=== PATIENT | male | born 1960 | race Caucasian/White ===

== ENCOUNTER 2016-07-31 19:22 | Emergency (ER) | payer OTHER ==
[~2016-07-31] VITALS: Ht 182.9 cm; Wt 91.0 kg
[~2016-07-31 19:22] MED LIST: DOXY100C PO
[2016-07-31 19:24] VITALS: BP 135/87; PULSE 102; RESP 16; TEMP 100.4; O2SAT 98
[2016-07-31] MEDS ORDERED: IBUPROFEN 800 MG TAB PO ONE (20:15)
[2016-07-31] MEDS ORDERED: CLINDAMYCIN INJ 900 MG in SODIUM CHLORIDE 0.9% INJ 100 ML IV ONE (20:15)
--- NOTE | 2016-07-31 20:28 | PD ---
HPI Chief Complaint: Lump, Cyst, Hernia Time Seen by Provider: 20:22 Travel History International Travel<30 days: No Contact w/Intl Traveler<30days: No Traveled to known affect area: No History of Present Illness HPI 55-year-old white male presents to emergency Department with complaints of a spider bite to his right forearm. He states that he felt that as if he had one on his dorsum of his arm a month ago and now he developed a second one on the volar forearm approximately 2 weeks ago. Patient admits to fever and chills. Increasing pain and swelling of the right forearm. He denies picking or squeezing the area. He denies any drug abuse or taking any medication. The patient states that he does not even like to take Tylenol. PFSH Past Medical History Medical History: Denies Significant Hx Diminished Hearing: No Tetanus Vaccination: Unknown Influenza Vaccination: No Past Surgical History Surgical History: No Previous Surgery Social History Alcohol Use: No Tobacco Use: No Substance Use: No Allergies-Medications (Allergen,Severity, Reaction): Coded Allergies: No Known Allergies (Unverified , 07/31/16) Reported Meds & Prescriptions Reported Meds & Active Scripts Active Cleocin (Clindamycin HCl) 150 Mg Cap 300 Mg PO Q6H Review of Systems Except as stated in HPI: all other systems reviewed are Neg General / Constitutional: Positive: Fever, Chills Eyes: No: Blurred Vision, Photophobia HENT: No: Headaches, Lightheadedness Cardiovascular: No: Chest Pain or Discomfort, Palpitations Respiratory: No: Cough, Shortness of Breath Gastrointestinal: No: Nausea, Vomiting Genitourinary: No: Dysuria, Hematuria Musculoskeletal: Positive: Myalgias, Edema, Pain Skin: Positive Rash, Positive Lumps Physical Exam Narrative GENERAL: This is a well-nourished, well-developed patient, in no apparent distress. SKIN: Examination the right forearm reveals a area of erythema, warmth and induration this measures approximately 8 x 8 cm. The forearm is edematous compared to the left. It is diffusely warm with mild tenderness. He has intact sensation distally. With good radial pulse. There is no involvement of the hand, elbow or upper arm. I feel no fluctuant abscess. HEAD: Atraumatic. Normocephalic. EYES: PERRL, EOMI, no discharge or injection. No scleral icterus. EARS: Clear NOSE: Nasal turbinates appear normal. THROAT: Mucosa pink and moist. Airway patent. NECK: Trachea midline. supple, moves head freely. LUNGS: Clear to auscultation. CV: Regular in rhythm. ABDOMEN: Soft nontender. EXT: No clubbing cyanosis or edema. Data Data Last Documented VS Vital Signs Date Time Temp Pulse Resp B/P Pulse Ox O2 Delivery O2 Flow Rate FiO2 07/31/16 19:49 16 07/31/16 19:24 100.4 102 135/87 98 Orders Complete Blood Count With Diff (07/31/16 20:02) Basic Metabolic Panel (Bmp) (07/31/16 20:02) Blood Culture (07/31/16 20:02) Iv Access Insert/Monitor (07/31/16 20:02) Clindamycin Inj (Cleocin Inj) (07/31/16 20:15) Ibuprofen (Motrin) (07/31/16 20:15) Drug Screen, Random Urine (07/31/16 20:28) Labs Laboratory Tests Test 07/31/16 20:20 White Blood Count 14.9 TH/MM3 Red Blood Count 4.51 MIL/MM3 Hemoglobin 12.3 GM/DL Hematocrit 37.8 % Mean Corpuscular Volume 83.8 FL Mean Corpuscular Hemoglobin 27.2 PG Mean Corpuscular Hemoglobin 32.5 % Concent Red Cell Distribution Width 14.9 % Platelet Count 300 TH/MM3 Mean Platelet Volume 8.6 FL Neutrophils (%) (Auto) 77.1 % Lymphocytes (%) (Auto) 11.0 % Monocytes (%) (Auto) 10.9 % Eosinophils (%) (Auto) 0.6 % Basophils (%) (Auto) 0.4 % Neutrophils # (Auto) 11.5 TH/MM3 Lymphocytes # (Auto) 1.6 TH/MM3 Monocytes # (Auto) 1.6 TH/MM3 Eosinophils # (Auto) 0.1 TH/MM3 Basophils # (Auto) 0.1 TH/MM3 CBC Comment DIFF FINAL Differential Comment Sodium Level 136 MEQ/L Potassium Level 4.3 MEQ/L Chloride Level 101 MEQ/L Carbon Dioxide Level 28.5 MEQ/L Anion Gap 7 MEQ/L Blood Urea Nitrogen 17 MG/DL Creatinine 1.68 MG/DL Estimat Glomerular Filtration 42 ML/MIN Rate Random Glucose 87 MG/DL Calcium Level 8.6 MG/DL [facility] Medical Decision Making Medical Screen Exam Complete: Yes Emergency Medical Condition: Yes Medical Record Reviewed: Yes Differential Diagnosis MDM: High Differential diagnoses: Abscess, folliculitis, cellulitis, lymphangitis, abrasion, contact dermatitis, IV drug abuse Narrative Course IV established. Blood culture sent. CBC, chemistry. Drug screen. Patient's given 900 mg of clindamycin IV. A drug screen was not collected due to patient's inability to urinate. He has an elevated white count and a elevated creatinine 1.6. The patient is advised to recheck in 48 hours with a primary care doctor or return to the ER if symptoms worsen. This is right arm cellulitis Diagnosis Primary Impression: Right arm cellulitis Patient Instructions: General Instructions Departure Forms: Tests/Procedures, Work Release Special Instructions: No work 2 days. Additional Instructions: Rest. Elevation. Warm compresses. Do not pick or squeeze. Clindamycin. 3 Advil every 6 hours. Recheck with a medical doctor in 48 hours or return to the ER if symptoms worsen. Med/Other Pt SpecificInfo: Prescription(s) given, Wound Care Scripts Clindamycin (Cleocin)150 Mg [id number] Mg PO Q6H #80 CAP Prov:Francisco Robb MD 07/31/16 Disposition: 01 DISCHARGE HOME Condition: Stable Garcia Rousseau Jul 31, 2016 20:27
[2016-07-31 20:52] LABS: AUTOMATED NEUTROPHIL # 11.5 TH/MM3 (1.8-7.7); BASOPHIL # 0.1 TH/MM3 (0-0.2); BASOPHIL % 0.4 % (0.0-2.0); EOSINOPHIL # 0.1 TH/MM3 (0-0.4); EOSINOPHIL % 0.6 % (0.0-4.0); HEMATOCRIT 37.8 % (39.0-51.0); HEMO FLAGS DIFF FINAL; LYMPHOCYTE # 1.6 TH/MM3 (1.0-4.8); MEAN CELL VOLUME 83.8 FL (80.0-100.0); MEAN CORPUSCULAR HEMOGLOBIN 27.2 PG (27.0-34.0); MEAN CORPUSCULAR HGB CONC 32.5 % (32.0-36.0); MONO % 10.9 % (0.0-8.0); NEUT % 77.1 % (16.0-70.0); PLATELET COUNT 300 TH/MM3 (150-450); RED BLOOD COUNT 4.51 MIL/MM3 (4.50-5.90); RED CELL DISTRIBUTION WIDTH 14.9 % (11.6-17.2); WHITE BLOOD COUNT 14.9 TH/MM3 (4.0-11.0)
[2016-07-31 21:16] LABS: BICARBONATE 28.5 MEQ/L (21.0-32.0); POTASSIUM 4.3 MEQ/L (3.5-5.1)
[2016-07-31] MEDS ORDERED: CLIN150 PO (21:23)
[2016-07-31 21:25] VITALS: RESP 14
[2016-07-31 21:36] VITALS: BP 156/62; TEMP 98.3
== END 2016-07-31 21:36 | disposition home or self-care (01) ==
LOC: NEPB 19:22
DX: L03.113 Cellulitis of right upper limb (principal); M79.89 Other specified soft tissue disorders; R50.9 Fever, unspecified
CPT/HCPCS: 80048; 85025; 87040; 96365

== ENCOUNTER 2016-08-02 00:46 | Emergency (ER) | payer OTHER ==
[~2016-08-02] VITALS: Ht 180.3 cm; Wt 96.0 kg
[~2016-08-02 00:46] MED LIST changes: +CLIN150 PO
[2016-08-02 00:52] VITALS: BP 115/69; PULSE 100; RESP 18; TEMP 97.9; O2SAT 97
[2016-08-02] MEDS ORDERED: LIDOCAINE 1%/EPINEPHrine 1:100,000 SOLN 20 ML VIAL INFIL ONE (02:00)
--- NOTE | 2016-08-02 02:24 | PD ---
HPI Chief Complaint: Bite or Sting Time Seen by Provider: 01:45 Travel History International Travel<30 days: No Contact w/Intl Traveler<30days: No Traveled to known affect area: No History of Present Illness HPI The patient is a 55-year-old right-hand dominant male that states he had a bite on his volar right forearm 2 weeks ago. This bite appeared to resolve but he developed an abscess on the dorsal aspect of the right forearm approximately one week ago. The patient went to the [facility] emergency department on 31 July and his lesion was not drained but they gave him a prescription for clindamycin. He comes in today knowing that it needs drainage. He denies any drug abuse. He states he is somewhat angry that he has happened several times where they gave him an antibiotic and did not drain his abscess and he has to come here to [place] to get it drained. His last tetanus shot was 2 years ago. PFSH Past Medical History Diminished Hearing: No Herniated Disk: Yes (LOWER BACK) Tetanus Vaccination: < 5 Years Social History Alcohol Use: Yes Tobacco Use: No (QUIT SMOKE 1996) Substance Use: No Allergies-Medications (Allergen,Severity, Reaction): Coded Allergies: No Known Allergies (Unverified , 08/02/16) Reported Meds & Prescriptions Reported Meds & Active Scripts Active Cleocin (Clindamycin HCl) 150 Mg Cap 300 Mg PO Q6H Review of Systems Except as stated in HPI: all other systems reviewed are Neg Physical Exam Narrative GENERAL: Well-nourished, well-developed patient in slight apparent distress with his right forearm. His vital signs show heart rate of 100 but otherwise normal. SKIN: Warm and dry. There is a 3 cm diameter abscess on the dorsal forearm surrounded by cellulitis and swelling. This obviously needs drainage. HEAD: Normocephalic. EYES: No scleral icterus. No injection or drainage. NECK: Supple, trachea midline. No JVD or lymphadenopathy. CARDIOVASCULAR: Regular rate and rhythm without murmurs, gallops, or rubs. RESPIRATORY: Breath sounds equal bilaterally. No accessory muscle use. The patient has excellent hand hunting and fishing guide strength and normal pinprick sensation of all his fingers and thumb on the right hand. Good capillary refill is present as well. GASTROINTESTINAL: Abdomen soft, non-tender, nondistended. MUSCULOSKELETAL: No cyanosis, or edema. BACK: Nontender without obvious deformity. No CVA tenderness. Data Data Last Documented VS Vital Signs Date Time Temp Pulse Resp B/P Pulse Ox O2 Delivery O2 Flow Rate FiO2 08/02/16 00:52 97.9 100 18 115/69 97 Orders Wound Culture And Gram Stain (08/02/16 01:51) Lidocai-Epi 1%-1:100,000 Inj (Xylocaine- (08/02/16 02:00) MDM Medical Decision Making Medical Screen Exam Complete: Yes Emergency Medical Condition: Yes Medical Record Reviewed: Yes Differential Diagnosis Abscess right forearm, cellulitis right forearm, needle track abscesshighly unlikely Narrative Course The patient has an abscess of his right forearm. Surrounding this abscess and cellulitis. A considerable amount of pus was recovered from the abscess but it still needs to drain from the surrounding tissues. The patient should soak the forearm and warm water twice daily for about 30 minutes. He should use elevation and a heating pad. Procedures Procedure Narrative The area was prepped with Betadine. A field block was done with lidocaine with epinephrine around the abscess. Under sterile technique, a #11 blade was used to incise into the abscess. Considerable pus was recovered. A culture was taken. Loculations were broken up with a Q-tips moistened with peroxide. The patient tolerated the procedure well. Diagnosis Primary Impression: Encounter for drainage of abscess Additional Impression: Right forearm cellulitis Additional Instructions: As we discussed, use a heating pad turned on its lowest setting an interposed a towel between your skin and the pad to avoid lynch. Elevate your forearm above your heart as much as possible. Once daily for 30 minutes soak the wound in warm water. You can do this in the shower and trained the shower on the forearm. Med/Other Pt SpecificInfo: Prescription(s) given Scripts Sulfamethoxazole-Trimethoprim (Bactrim DS)800-160 Mg Tab1 Tab PO BID #20 TAB Ref 0 Prov:Joseph Bess MD 08/02/16 Disposition: 01 DISCHARGE HOME Condition: Stable Joseph Bess MD Aug 02, 2016 02:24
[2016-08-02] MEDS ORDERED: BACT800T5 PO (02:31)
[2016-08-02] MEDS ORDERED: SULFAMETHOXAZOLE-TRIMETHOPRIM DS 800-160 MG TAB PO ONE (02:45)
== END 2016-08-02 02:45 | disposition home or self-care (01) ==
LOC: PHED 00:46
DX: L02.413 Cutaneous abscess of right upper limb (principal)
CPT/HCPCS: 10060; 86403; 87070; 87186

== ENCOUNTER 2016-08-06 18:01 | Emergency (ER) | payer OTHER ==
[~2016-08-06] VITALS: Ht 167.6 cm; Wt 94.0 kg
[~2016-08-06 18:01] MED LIST changes: +BACT800T5 PO; -DOXY100C PO
[2016-08-06 18:06] VITALS: BP 105/76; PULSE 76; RESP 20; TEMP 99.9; O2SAT 98
[2016-08-06] MEDS ORDERED: VENTAER INH (18:49)
--- NOTE | 2016-08-06 18:52 | PD ---
HPI Chief Complaint: Skin Problem Time Seen by Provider: 18:21 Travel History International Travel<30 days: No Contact w/Intl Traveler<30days: No Traveled to known affect area: No History of Present Illness HPI This patient complains of some body aches and runny nose and congestion and cough. He was here 4 days ago for I&D of an arm abscess which is improving. Severity symptoms is moderate. PFSH Past Medical History Diminished Hearing: No Herniated Disk: Yes (LOWER BACK) Tetanus Vaccination: < 5 Years Influenza Vaccination: No Past Surgical History Other Surgery: Yes (I and D right elbow) Social History Alcohol Use: No Tobacco Use: No (QUIT SMOKE 1996) Substance Use: No Allergies-Medications (Allergen,Severity, Reaction): Coded Allergies: *MDRO Multi-Drug Resistant Organism (Verified Adverse Reaction, Unknown, ) MRSA (elbow)-08/01/16 Reported Meds & Prescriptions Reported Meds & Active Scripts Active Ventolin Hfa 18 GM Inh (Albuterol Sulfate) 90 Mcg/Act Aer 1 Puff INH Q4H PRN Bactrim DS (Sulfamethoxazole-Trimethoprim) 800-160 Mg Tab 1 Tab PO BID Cleocin (Clindamycin HCl) 150 Mg Cap 300 Mg PO Q6H Review of Systems HENT: No: Headaches Cardiovascular: No: Chest Pain or Discomfort Respiratory: Positive: Cough Physical Exam Narrative RESPIRATORY: Respiratory effort unlabored, no retractions or use of accessory muscles. Breath sounds reveal some rhonchi and are symmetric GASTROINTESTINAL: Abdomen soft, non-tender, nondistended. Positive bowel sounds. No hepato-splenomegaly, or palpable masses. No guarding. Right arm: Incision and drainage site is healing, no fluctuance or drainage Data Data Last Documented VS Vital Signs Date Time Temp Pulse Resp B/P Pulse Ox O2 Delivery O2 Flow Rate FiO2 08/06/16 18:06 99.9 76 20 105/76 98 MDM Medical Decision Making Medical Screen Exam Complete: Yes Emergency Medical Condition: Yes Medical Record Reviewed: Yes Differential Diagnosis Flu syndrome, bronchitis, URI Narrative Course I have reviewed the patient's electronic medical record. Reviewed prior visit from 4 days ago as well as I and the culture results that show MRSA sensitive to both of his antibiotics Patient has a flu syndrome I think unrelated to his arm infection which is healing Continue antibiotics Supportive care discussed and an inhaler prescribed Diagnosis Primary Impression: Acute viral syndrome Additional Instructions: The patient was advised to follow up with their physician and return if they worsen. Med/Other Pt SpecificInfo: Prescription(s) given Scripts Albuterol 18 GM Inh (Ventolin Hfa 18 GM Inh)90 Mcg/Act Aer1 Puff INH Q4H PRN ( SHORTNESS OF BREATH) #1 INHALER Ref 0 Prov:Anselmo Barr MD 08/06/16 Disposition: 01 DISCHARGE HOME Condition: Stable Anselmo Barr MD Aug 06, 2016 18:51
== END 2016-08-06 19:11 | disposition home or self-care (01) ==
LOC: PHED 18:01
DX: B34.9 Viral infection, unspecified (principal)
CPT/HCPCS: 99283

== ENCOUNTER 2016-10-16 07:58 | Observation (INO) | payer OTHER ==
[~2016-10-16] VITALS: Ht 180.3 cm; Wt 86.4 kg
[2016-10-16] VITALS (18 sets, daily range): BP systolic 119–148; BP diastolic 84–104; PULSE 88–101; RESP 12–41; TEMP 97.9–98.6; O2SAT 82–100
[~2016-10-16 07:58] MED LIST changes: +VENTAER INH
--- NOTE | 2016-10-16 08:36 | PD ---
HPI Chief Complaint: Respiratory Symptoms Time Seen by Provider: 08:09 Travel History International Travel<30 days: No Contact w/Intl Traveler<30days: No Traveled to known affect area: No History of Present Illness HPI This is a 56 year old male who has no significant past medical history who presents with one month of shortness of breath. Pt. reports that one month ago he had the flu and he recovered, but over the past 2 weeks his shortness of breath has persisted, constant, worsening, with difficulty sleeping and difficulty lying flat. He feels somewhat lightheaded, but denies any fevers, chills, chest pain or cough. 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 PFSH Past Medical History Diminished Hearing: No Herniated Disk: Yes (LOWER BACK) Tetanus Vaccination: > 5 Years Influenza Vaccination: No Past Surgical History Other Surgery: Yes (I and D right elbow) Social History Alcohol Use: No Tobacco Use: No (QUIT SMOKE 1996) Substance Use: No Allergies-Medications (Allergen,Severity, Reaction): Coded Allergies: *MDRO Multi-Drug Resistant Organism (Verified Adverse Reaction, Unknown, ) MRSA (elbow)-08/01/16 Reported Meds & Prescriptions Reported Meds & Active Scripts Active No Active Prescriptions or Reported Medications Review of Systems Except as stated in HPI: all other systems reviewed are Neg Physical Exam Narrative GENERAL:Well appearing, no acute distress SKIN: Focused skin assessment warm and dry. HEAD: Atraumatic. Normocephalic. EYES: Pupils equal and round. No injection or drainage. ENT: Moist mucous membranes NECK: Trachea midline. CARDIOVASCULAR: Regular rate and rhythm. No murmur appreciated. RESPIRATORY: Clear to auscultation. Breath sounds equal bilaterally. GASTROINTESTINAL: Abdomen soft, non-tender, nondistended. MUSCULOSKELETAL: No obvious deformities. NEUROLOGICAL: Awake and alert. No obvious cranial nerve deficits. Moving all extremities. PSYCHIATRIC: Appropriate mood and affect; insight and judgment normal. Data Data Last Documented VS Vital Signs Date Time Temp Pulse Resp B/P Pulse Ox O2 Delivery O2 Flow Rate FiO2 10/16/16 10:23 98.6 94 26 125/87 97 Room Air Orders Complete Blood Count With Diff (10/16/16 08:43) Comprehensive Metabolic Panel (10/16/16 08:43) B-Type Natriuretic Peptide (10/16/16 08:43) Troponin I (10/16/16 08:43) Iv Access Insert/Monitor (10/16/16 08:43) Ecg Monitoring (10/16/16 08:43) Oximetry (10/16/16 08:43) Oxygen Administration (10/16/16 08:43) Chest, Pa & Lat (10/16/16 08:43) Sodium Chloride 0.9% Flush (Ns Flush) (10/16/16 08:45) Aspirin Chew (Aspirin Chew) (10/16/16 09:45) D-Dimer (10/16/16 09:44) Prothrombin Time / Inr (Pt) (10/16/16 09:44) Act Partial Throm Time (Ptt) (10/16/16 09:44) Furosemide Inj (Lasix Inj) (10/16/16 10:15) Admit Order (Ed Use Only) (10/16/16 10:23) Labs Laboratory Tests Test 10/16/16 08:50 White Blood Count 10.0 TH/MM3 Red Blood Count 4.60 MIL/MM3 Hemoglobin 12.5 GM/DL Hematocrit 38.7 % Mean Corpuscular Volume 84.1 FL Mean Corpuscular Hemoglobin 27.2 PG Mean Corpuscular Hemoglobin 32.4 % Concent Red Cell Distribution Width 15.9 % Platelet Count 293 TH/MM3 Mean Platelet Volume 8.4 FL Neutrophils (%) (Auto) 72.2 % Lymphocytes (%) (Auto) 17.2 % Monocytes (%) (Auto) 7.8 % Eosinophils (%) (Auto) 1.1 % Basophils (%) (Auto) 1.7 % Neutrophils # (Auto) 7.2 TH/MM3 Lymphocytes # (Auto) 1.7 TH/MM3 Monocytes # (Auto) 0.8 TH/MM3 Eosinophils # (Auto) 0.1 TH/MM3 Basophils # (Auto) 0.2 TH/MM3 CBC Comment DIFF FINAL Differential Comment Prothrombin Time 10.7 SEC Prothromb Time International 1.0 RATIO Ratio Activated Partial 24.6 SEC Thromboplast Time D-Dimer Quantitative (PE/DVT) 0.73 MG/L FEU Sodium Level 141 MEQ/L Potassium Level 4.1 MEQ/L Chloride Level 109 MEQ/L Carbon Dioxide Level 22.9 MEQ/L Anion Gap 9 MEQ/L Blood Urea Nitrogen 27 MG/DL Creatinine 1.80 MG/DL Estimat Glomerular Filtration 39 ML/MIN Rate Random Glucose 104 MG/DL Calcium Level 7.8 MG/DL Total Bilirubin 0.4 MG/DL Aspartate Amino Transf 95 U/L (AST/SGOT) Alanine Aminotransferase 120 U/L (ALT/SGPT) Alkaline Phosphatase 89 U/L Troponin I 0.17 NG/ML B-Type Natriuretic Peptide 2277 PG/ML Total Protein 6.7 GM/DL Albumin 3.1 GM/DL MDM Medical Decision Making Medical Screen Exam Complete: Yes Emergency Medical Condition: Yes Interpretation(s) EKG: Afebrile, tachycardic, tachypneic, normotensive No leukocytosis Renal insufficiency Troponin 0.17 BNP is 2277 D-dimer is 0.73 Chest x-ray: Cardiomegaly with interstitial prominence VQ scan: Low probability of PE Differential Diagnosis COPD exacerbation, congestive heart failure, myocardial infarction, pulmonary embolism, pneumonia Narrative Course This is a 56-year-old male who has a history of methamphetamine abuse who presents to the emergency department with increasing shortness of breath it's been progressive for 4 weeks ever since he had an upper respiratory infection. He was placed on a monitor and an IV was established. He was not hypoxic but was found to be somewhat tachypneic. Labs are obtained which demonstrate a BNP of 2200. Chest x-ray demonstrates some pulmonary congestion on my read. He was given 40 mg of IV Lasix. I suspect he may have a dilated cardiomyopathy in the setting of drug use, although ischemic cardiomyopathy cannot be excluded. D -dimer was slightly elevated. VQ scan will be ordered. After inflating the bathroom patient became a little more dyspneic and slightly hypoxic. He'll be admitted to the stepdown unit at [facility]. Diagnosis Primary Impression: Congestive heart failure Qualified Code: I50.9 - Acute congestive heart failure, unspecified congestive heart failure type Admitting Information Admitting Physician Requests: Admit Scripts No Active Prescriptions or Reported Meds Britney Ojeda MD October 16, 2016 08:36
[2016-10-16 08:58] LABS: AUTOMATED NEUTROPHIL # 7.2 TH/MM3 (1.8-7.7); BASOPHIL # 0.2 TH/MM3 (0-0.2); BASOPHIL % 1.7 % (0.0-2.0); EOSINOPHIL # 0.1 TH/MM3 (0-0.4); EOSINOPHIL % 1.1 % (0.0-4.0); HEMATOCRIT 38.7 % (39.0-51.0); LYMPH % 17.2 % (9.0-44.0); LYMPHOCYTE # 1.7 TH/MM3 (1.0-4.8); MEAN CELL VOLUME 84.1 FL (80.0-100.0); MEAN CORPUSCULAR HEMOGLOBIN 27.2 PG (27.0-34.0); MEAN CORPUSCULAR HGB CONC 32.4 % (32.0-36.0); MONO % 7.8 % (0.0-8.0); NEUT % 72.2 % (16.0-70.0); PLATELET COUNT 293 TH/MM3 (150-450); RED CELL DISTRIBUTION WIDTH 15.9 % (11.6-17.2)
[2016-10-16 09:03] LABS: HEMO FLAGS DIFF FINAL
[2016-10-16 09:07] LABS: CHLORIDE 109 MEQ/L (98-107); POTASSIUM 4.1 MEQ/L (3.5-5.1); SODIUM (NA) 141 MEQ/L (136-145)
[2016-10-16 09:12] LABS: ANION GAP 9 MEQ/L (5-15); BICARBONATE 22.9 MEQ/L (21.0-32.0); BLOOD UREA NITROGEN 27 MG/DL (7-18)
[2016-10-16 09:15] LABS: ALT (GPT) 120 U/L (12-78); AST (GOT) 95 U/L (15-37)
[2016-10-16 09:16] LABS: GLOMERULAR FILTRATION RATE 39 ML/MIN (>89)
[2016-10-16 09:17] LABS: TOTAL BILIRUBIN ADULT 0.4 MG/DL (0.2-1.0)
[2016-10-16 09:18] LABS: ALKALINE PHOSPHATASE 89 U/L (45-117)
[2016-10-16] MEDS ORDERED: ASPIRIN 81 MG CHEW TAB CHEW ONE (09:45)
--- NOTE | 2016-10-16 10:08 | RADHPO ---
EXAM DATE/TIME: 10/16/2016 09:15 [facility] COMPARISON: No previous studies available for comparison. INDICATIONS : Short of breath, chest tightness. MEDICAL HISTORY : None. SURGICAL HISTORY : None. ENCOUNTER: Initial ACUITY: 2 weeks PAIN SCORE: 1/10 LOCATION: Bilateral chest FINDINGS: PA and lateral views of the chest demonstrate diminished lung minus. Heart mildly enlarged. Tiny righ t pleural effusion. There is some pulmonary vascular congestion and interstitial prominence. Osseous structures are intact. CONCLUSION: 1. Cardiomegaly with slight interstitial prominence likely CHF. 2. Tiny right pleural effusion. Angel Villalobos MD on October 16, 2016 at 10:05 Board Certified Radiologist. This report was verified electronically.
[2016-10-16] MEDS ORDERED: FUROSEMIDE 40 MG/4 ML VIAL IV PUSH ONE (10:15)
[2016-10-16] MEDS: SODIUM CHLORIDE 0.9% FLUSH 10 ML FLUSH IVF PRN (10:20)
[2016-10-16 10:23] LABS: APTT (PATIENT) 24.6 SEC (24.3-30.1); PROTHROMBIN TIME - PATIENT 10.7 SEC (9.8-11.6)
[2016-10-16] MEDS ORDERED: PILL SPLITTER OTHER PRN (12:00)
[2016-10-16] MEDS: HEPARIN SODIUM - SQ 10,000 UNITS/ML VIAL SQ SCH ×2 (12:00→20:08)
--- NOTE | 2016-10-16 15:04 | HHI.HP ---
[facility] No Primary Care Physician Admission Diagnosis acute congestive heart failure Diagnoses: Chief Complaint: Shortness of breath Travel History International Travel<30 Days: No Contact w/Intl Traveler <30 Da: No Traveled to Known Affected Are: No History of Present Illness 56 years old male withpast medical history presented to the ED complaining of subjective feeling of constant short of breath, his saturation wasn't dropping in ED however his BMP was 2200. 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 He stated he quit smoking 1996 and he drinks alcohol once a month. 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 Family History Father had multiple heart attack Social History Quit smoking 1996, drink alcohol occasionally, positive marijuana and meth Physical Exam Vital Signs Vital Signs Date Time Temp Pulse Resp B/P Pulse Ox O2 Delivery O2 Flow Rate FiO2 10/16/16 12:02 96 41 129/102 94 10/16/16 11:48 92 40 125/95 96 10/16/16 11:41 90 37 148/104 93 10/16/16 10:47 98 26 123/99 100 Nasal Cannula 2 10/16/16 10:23 98.6 94 26 125/87 97 Room Air 10/16/16 09:41 96 24 125/87 100 Room Air 10/16/16 08:53 100 Room Air 10/16/16 08:52 100 Room Air 10/16/16 08:14 10/16/16 08:13 100 Room Air 10/16/16 08:05 98.6 101 17 130/97 100 Physical Exam GENERAL: This is a well-nourished, well-developed patient, in no apparent distress. SKIN: No rashes, warm and dry HEAD: Atraumatic. Normocephalic. EYES: Pupils equal round and reactive. Extraocular motions intact. No scleral icterus. ENT: Nose without bleeding, or drainage, Airway patent. NECK: Trachea midline. Supple CARDIOVASCULAR: Regular with ectopy rate and rhythm without murmurs, gallops, or rubs. RESPIRATORY: Fair air entry bilaterally. No wheezes, rales, or rhonchi. GASTROINTESTINAL: Abdomen soft, non-tender, nondistended. Positive bowel sounds MUSCULOSKELETAL: Extremities without clubbing, cyanosis, or edema. Pedal pulses appreciated NEUROLOGICAL: Awake and alert. Moves all extremity. Normal speech.no focal neurological deficit Laboratory Laboratory Tests Test 10/16/16 08:50 White Blood Count 10.0 Red Blood Count 4.60 Hemoglobin 12.5 Hematocrit 38.7 Mean Corpuscular Volume 84.1 Mean Corpuscular Hemoglobin 27.2 Mean Corpuscular Hemoglobin 32.4 Concent Red Cell Distribution Width 15.9 Platelet Count 293 Mean Platelet Volume 8.4 Neutrophils (%) (Auto) 72.2 Lymphocytes (%) (Auto) 17.2 Monocytes (%) (Auto) 7.8 Eosinophils (%) (Auto) 1.1 Basophils (%) (Auto) 1.7 Neutrophils # (Auto) 7.2 Lymphocytes # (Auto) 1.7 Monocytes # (Auto) 0.8 Eosinophils # (Auto) 0.1 Basophils # (Auto) 0.2 CBC Comment DIFF FINAL Differential Comment Prothrombin Time 10.7 Prothromb Time International 1.0 Ratio Activated Partial 24.6 Thromboplast Time D-Dimer Quantitative (PE/DVT) 0.73 Sodium Level 141 Potassium Level 4.1 Chloride Level 109 Carbon Dioxide Level 22.9 Anion Gap 9 Blood Urea Nitrogen 27 Creatinine 1.80 Estimat Glomerular Filtration 39 Rate Random Glucose 104 Calcium Level 7.8 Total Bilirubin 0.4 Aspartate Amino Transf 95 (AST/SGOT) Alanine Aminotransferase 120 (ALT/SGPT) Alkaline Phosphatase 89 Troponin I 0.17 B-Type Natriuretic Peptide 2277 Total Protein 6.7 Albumin 3.1 Result Diagram: 10/16/16 0850 10/16/16 0850 Imaging Last Impressions Chest X-Ray 10/16/16 0843 Signed Impressions: Service Date/Time: Sunday, October 16, 2016 09:15 - CONCLUSION: 1. Cardiomegaly with slight interstitial prominence likely CHF. 2. Tiny right pleural effusion. Angel Villalobos MD Assessment and Plan Assessment and Plan 56 years old male presented with Short of breath with BMP 2277, chest x-ray showing enlarged heart with a moderate congestion and pleural effusion Rule out new cardiomyopathy, viral versus illicit drug-induced Patient was given a dose of Lasix iv, will continue Monitor BMP, BNP, negative for loss, I&O's Continue cycling cardiac enzyme first set increase troponin 0.17 2-D echo ordered Dimer elevated, ordered VQ scan pending Check A1c and lipid profile rule out underlying ischemic process If cardiomyopathy confirmed, will consult cardiology for possible heart catheter EBONI versus CKD we don't have baseline creatinine level Recent creatinine in July 2016 was 1.68, today is 1.8 Avoid nephrotoxin, monitor BMP, continue diuresing Monitor I's and O's Multiple ectopy on heart auscultation with bigeminy and trigeminy on telemetry Consistent with possible cardiomyopathy we'll wait for 2-D echo, monitor electrolyte and replace as needed Meth abuse own patient counseled Elevated transaminase Possible liver congestion, repeat level in a.m., if continued to be increase consider liver ultrasound and hepatitis panel Symptomatic bacteriuria: UA showing small leukocyte esterase with 12 WBC, no dysuria, antibiotic not indicated DVT prophylaxis with heparin and SCD Discussed Condition With Patient in ED physician Natalie Avila MD October 16, 2016 15:04
[2016-10-16 15:09] LABS: HDL CHOLESTEROL 43.6 MG/DL (40.0-60.0); LDL CHOLESTEROL 101 MG/DL (0-99)
--- NOTE | 2016-10-16 15:21 | RADHPO ---
EXAM DATE/TIME: 10/16/2016 14:20 [facility] COMPARISON: No previous studies available for comparison. INDICATIONS : Dyspnea with elevated d-dimer. DOSE: 8.5 mCi Tc99m MAA IV 0.54 mCi Tc99m DTPA aerosol MEDICAL HISTORY : Polysubstance abuse. SURGICAL HISTORY : Right elbow. ENCOUNTER: Subsequent ACUITY: 2 weeks PAIN SCALE: 4/10 LOCATION: Bilateral chest TECHNIQUE: Following five minutes of tidal breathing of DTPA aerosol, planar images of the lungs were performed in eight projections. The patient was then injected with MAA, and eight-view perfusion scan was perf ormed. FINDINGS: There is a homogeneous pattern of aerosol delivery to the periphery of both lungs. No focal ventilat ory defects are seen. The perfusion lung scan demonstrates a homogenous pattern of uptake in both lungs. No segmental or s ubsegmental defects are seen. CONCLUSION: 1. Low probability of pulmonary embolism Adilson Romano MD on October 16, 2016 at 15:18 Board Certified Radiologist. This report was verified electronically.
[2016-10-16 17:22] LABS: CREATINE KINASE 132 U/L (39-308)
[2016-10-16 17:27] LABS: HEMOGLOBIN A1b 1.5 %; HEMOGLOBIN Ao 85.7 %; HEMOGLOBIN P3 5.2 %
[2016-10-16 17:34] LABS: CKMB 4.5 NG/ML (0.5-3.6)
[2016-10-16] MEDS ORDERED: FUROSEMIDE 40 MG/4 ML VIAL IVP SCH (18:00)
--- NOTE | 2016-10-16 20:02 | EC ---
Study Study Date:10/16/2016 STUDY CONCLUSIONS SUMMARY - Left ventricle: The cavity size was severely dilated. Wall thickness was normal. Systolic function was severely reduced. The estimated ejection fraction was in the range of 10% to 15%. Diffuse hypokinesis. - Mitral valve: Moderate to severe regurgitation. - Tricuspid valve: Moderate-severe regurgitation. - Pulmonary arteries: Systolic pressure was moderately increased. PA peak pressure: 50mm Hg (S). If LV function is below 40, please consider prescribing an ACEI or ARB or document rationale for non-use. PROCEDURE DATA STUDY STATUS: Elective. Procedure: Transthoracic echocardiography. Image quality was good. Scanning was performed from the parasternal, apical, and subcostal acoustic windows. Study completion: The patient tolerated the procedure well. Transthoracic echocardiography. M-mode, complete 2D, complete spectral Doppler, and color Doppler. Height: Height: 71in. Weight: Weight: 204.6lb. Body mass index: BMI: 28.6kg/m^2. Body surface area: BSA: 2.13m^2. Patient status: Inpatient. CARDIAC ANATOMY LEFT VENTRICLE: The cavity size was severely dilated. Wall thickness was normal. Systolic function was severely reduced. The estimated ejection fraction was in the range of 10% to 15%. Diffuse hypokinesis. AORTIC VALVE: Trileaflet; normal thickness leaflets. Doppler: Transvalvular velocity was within the normal range. There was no stenosis. No regurgitation. Mean gradient: 4mm Hg (S). AORTA: Aortic root: The aortic root was normal in size. MITRAL VALVE: Structurally normal valve. Doppler: Transvalvular velocity was within the normal range. There was no evidence for stenosis. Moderate to severe regurgitation. Peak gradient: 6mm Hg (D). LEFT ATRIUM: The atrium was normal in size. RIGHT VENTRICLE: The cavity size was normal. Wall thickness was normal. PULMONIC VALVE: Doppler: Transvalvular velocity was within the normal range. There was no evidence for stenosis. No regurgitation. TRICUSPID VALVE: Structurally normal valve. Doppler: Transvalvular velocity was within the normal range. Moderate-severe regurgitation. PULMONARY ARTERY: The main pulmonary artery was normal-sized. Systolic pressure was moderately increased. RIGHT ATRIUM: The atrium was normal in size. PERICARDIUM: There was no pericardial effusion. SYSTEMIC VEINS: Inferior vena cava: The vessel was normal in size. Patient weight: 204.6lb _Ejection fraction:_ 65-75% _Fractional shortening:_ 32% up to 5Kg 5-11.5Kg 11.6-22.9Kg 23-45Kg 45-57Kg Aortic Root 7-13 <17 13-22 17-27 17-27 LA diam 6-13 <23 24-38 33-47 37-40 RVID 10-17 7-15 7-15 7-18 8-17 LVIDd 12-22 <32 24-38 33-47 37-40 LVPW 2-4 3-6 5-7 6-8 7-8 IVS 2-4 3-6 5-7 6-8 7-8 BASIC MEASUREMENTS ADULT Normal Left ventricle LV internal dimension, ED, chordal level, *71.4 mm 43-52 PLAX LV internal dimension, ES, chordal level, *67.6 mm 23-38 PLAX Fractional shortening, chordal level, PLAX *5 % >29 LV posterior wall thickness, ED 9.8 mm IVS/LVPW ratio, ED 1 <1.3 Ventricular septum Septal thickness, ED 9.8 mm Aortic valve Leaflet separation 20 mm 15-26 Aorta Root diameter, ED 31 mm Left atrium Anterior-posterior dimension 43 mm Anterior-posterior dimension index 2.02 cm/m^2 <2.2 BASIC MEASUREMENTS ADULT Normal Aortic valve Leaflet separation 20 mm 15-26 DOPPLER MEASUREMENTS ADULT Normal Main pulmonary artery Pressure, S *50 mm Hg =30 Aortic valve Peak velocity, S 128 cm/s Mean velocity, S 89.6 cm/s VTI, S 20.4 cm Mean gradient, S 4 mm Hg Mitral valve Peak E-wave velocity 126 cm/s Peak A-wave velocity 23.4 cm/s Deceleration time 158 ms 150-230 Peak gradient, D 6 mm Hg Peak E/A ratio 5.4 Tricuspid valve Regurgitant peak velocity 323 cm/s Peak RV-RA gradient, S 42 mm Hg Maximal regurgitant velocity 323 cm/s Systemic veins Estimated CVP 10 mm Hg Right ventricle RV pressure, S *52 mm Hg < 30 Pulmonic valve Peak velocity, S 65.8 cm/s LEGEND: Mean values are shown as u=mean value. Asterisk (*) lewis values outside specified normal range. Prepared and signed by Kathy Phillips [id number]
[2016-10-16] MEDS: ENALAPRIL MALEATE 5 MG TAB PO SCH (20:06)
[2016-10-16] MEDS: CARVEDILOL 3.125 MG TAB PO SCH (20:07)
[2016-10-16 22:32] LABS: CREATINE KINASE 116 U/L (39-308)
[2016-10-16 22:44] LABS: CKMB 3.4 NG/ML (0.5-3.6)
[2016-10-17] VITALS (8 sets, daily range): BP systolic 93–144; BP diastolic 61–86; PULSE 82–96; RESP 18–33; TEMP 96.9–98.6; O2SAT 93–98
[2016-10-17] MEDS: HEPARIN SODIUM - SQ 10,000 UNITS/ML VIAL SQ SCH ×3 (04:34→21:32)
[2016-10-17 05:41] LABS: CHLORIDE 104 MEQ/L (98-107); POTASSIUM 3.7 MEQ/L (3.5-5.1); SODIUM (NA) 141 MEQ/L (136-145)
[2016-10-17 05:45] LABS: ANION GAP 10 MEQ/L (5-15); BICARBONATE 27.3 MEQ/L (21.0-32.0); BLOOD UREA NITROGEN 26 MG/DL (7-18)
[2016-10-17 05:48] LABS: ALT (GPT) 99 U/L (12-78); AST (GOT) 50 U/L (15-37); GLOMERULAR FILTRATION RATE 45 ML/MIN (>89)
[2016-10-17 05:50] LABS: TOTAL BILIRUBIN ADULT 0.9 MG/DL (0.2-1.0)
[2016-10-17 05:51] LABS: ALKALINE PHOSPHATASE 81 U/L (45-117)
--- NOTE | 2016-10-17 09:03 | MB ---
cc: SHILA SERRANO MD DATE OF CONSULTATION 10/17/2016 REASON FOR CONSULTATION CHF HISTORY OF PRESENT ILLNESS Mr. Crowe is a 56-year-old man who presented to the emergency room with complaints of shortness of breath. The patient reports that he has had progressive shortness of breath over the last month. She denies any prior cardiac history. He reports that he has been using crystal meth and some marijuana. He says he has been using a fair amount lately. He has not noticed any shortness of breath or lower extremity edema. He denies any chest pain. SOCIAL HISTORY The patient is a former smoker and reports he quit cold turkey. He occasionally has alcohol. Illicit drug use as above. REVIEW OF SYSTEMS Except for as mentioned in the HPI, all 12 systems are negative. PAST MEDICAL HISTORY Significant for: 1. Low back pain 2. Multidrug resistant organism FAMILY HISTORY Positive for CAD. ALLERGIES NO KNOWN DRUG ALLERGIES. OUTPATIENT MEDICATIONS 1. Ventolin 2. Bactrim 3. Clindamycin PHYSICAL EXAM VITAL SIGNS: 98.2, 26, 93/62. GENERAL: In general, he is a well-appearing man. He is in no apparent distress. NECK: His neck is free from JVD. LUNGS: The lungs are a bit decreased, but clear to auscultation. CARDIOVASCULAR: On examination, he has a normal S1 and S1. There is a 2/6 systolic murmur. No rubs or gallops are appreciated. ABDOMEN: Soft. EXTREMITIES: Free from edema. ECHOCARDIOGRAM Does show an EF of 10-15%. There is moderate to severe mitral and tricuspid regurgitation. LABORATORY VALUES Significant for a BNP of 2277 and serial troponins 0.15/0.16/0/17 with a total CK of 1382 and 116. His LDL is 101 and creatinine is 1.6. IMPRESSION Cardiomyopathy - The patient does have severe LV impairment with global hypokinesis. This is more consistent with a nonischemic process as is his presentation. Nonetheless, he does have several CV risk factors. The troponin elevations are most consistent also with CHF given his presentation and the flat elevation. I did discuss catheterization versus nuclear stress testing. The patient was agreeable to nuclear stress testing given the risks and benefits. He is going to stop the illicit drug use. We will check a TSH and a nuclear stress test. In the interim, we will optimize his medical management of the CHF and switch him to p.o. meds. Cardiomyopathy - EF of 15% - as above. Illicit drug use - The patient was counseled to quit. CKD - The patient does have a creatinine of 1.6. This would also significantly increase his risk if we were to pursue catheterization for complete renal failure. Again, the patient is not interested in this option. Disposition - It is reasonable for the patient to be transferred to the floors. If the nuclear stress test is not ischemic, it is reasonable for him to be discharged tomorrow. Shila Serrano M.D. SUZETTE/TAON /7:37 AM /8:49 AM
[2016-10-17] MEDS: POTASSIUM CHLORIDE 20 MEQ CONTROLLED RELEASE TAB PO SCH ×2 (09:34→21:31)
[2016-10-17] MEDS: CARVEDILOL 3.125 MG TAB PO SCH ×2 (09:34→21:31)
[2016-10-17] MEDS: ASPIRIN 81 MG CHEW TAB CHEW SCH (09:34)
[2016-10-17] MEDS: FUROSEMIDE 40 MG TAB PO SCH ×2 (09:35→17:30)
[2016-10-17] MEDS: ENALAPRIL MALEATE 5 MG TAB PO SCH ×2 (09:35→21:31)
--- NOTE | 2016-10-17 11:16 | EKG ---
Date Performed: 10/16/2016 Time Performed: 10:39:10 PTAGE: 56 years EKG: Sinus rhythm Possible left atrial abnormality Borderline ECG PREVIOUS TRACING : 10/16/2016 08.13 DOCTOR: Robert Molina Interpretating Date/Time 10/17/2016 11:15:35
--- NOTE | 2016-10-17 11:20 | EKG ---
Date Performed: 10/16/2016 Time Performed: 08:13:22 PTAGE: 56 years EKG: Sinus rhythm Possible left atrial abnormality Borderline ECG NO PREVIOUS TRACING DOCTOR: Robert Molina Interpretating Date/Time 10/17/2016 11:18:09
--- NOTE | 2016-10-17 16:19 | HHI.PR ---
Subjective Remarks Patient is feeling better. No acute complaints today. He is not having shortness of breath like previously and is feeling closer to his baseline. Stress Test planned for tomorrow. No chest pain. Objective Vital Signs Date Time Temp Pulse Resp B/P Pulse Ox O2 Delivery O2 Flow Rate FiO2 10/17/16 15:30 98.4 82 21 110/80 98 10/17/16 12:00 98.6 85 24 105/76 95 10/17/16 08:05 97 21 10/17/16 08:00 96.9 90 24 124/76 96 10/17/16 07:00 92 10/17/16 04:00 98.2 86 26 93/61 93 10/17/16 00:00 98.1 84 33 118/78 10/16/16 23:00 88 10/16/16 20:00 95 Nasal Cannula 2.00 10/16/16 20:00 97.9 94 22 123/87 95 10/16/16 20:00 94 10/16/16 18:00 98 I/O 10/16/16 10/16/16 10/16/16 10/17/16 10/17/16 10/17/16 07:00 15:00 23:00 07:00 15:00 23:00 Intake Total 860 ml 800 ml Output Total 1650 ml 2500 ml 475 ml Balance -790 ml -1700 ml -475 ml Intake Oral 860 ml 800 ml Output Urine Total 1650 ml 2500 ml 475 ml # Voids 2 # Bowel Movements 0 0 Result Diagram: 10/16/16 0850 10/17/16 0500 Imaging Last Impressions Chest X-Ray 10/16/16 0843 Signed Impressions: Service Date/Time: Sunday, October 16, 2016 09:15 - CONCLUSION: 1. Cardiomegaly with slight interstitial prominence likely CHF. 2. Tiny right pleural effusion. Angel Villalobos MD Lung Scan- Nuclear Medicine 10/16/16 0000 Signed Impressions: Service Date/Time: Sunday, October 16, 2016 14:20 - CONCLUSION: 1. Low probability of pulmonary embolism Adilson Romano MD Objective Remarks GENERAL: NAD, A&Ox3 SKIN: Warm and dry. HEAD: Normocephalic. EYES: No scleral icterus. No injection or drainage. NECK: Supple, trachea midline. No JVD or lymphadenopathy. CARDIOVASCULAR: Regular rate and rhythm without murmurs, gallops, or rubs. RESPIRATORY: Breath sounds equal bilaterally. No accessory muscle use. GASTROINTESTINAL: Abdomen soft, non-tender, nondistended. MUSCULOSKELETAL: No cyanosis, or edema. BACK: Nontender without obvious deformity. No CVA tenderness. Medications and IVs Administered Medications Medications (Trade) Dose Ordered Sig/Hernan Route PRN Reason Start Time Stop Time Status Last Admin Dose Admin Sodium Chloride (NS Flush) 2 ml UNSCH PRN IVF FLUSH AFTER USING IV ACCESS 10/16/16 08:45 10/16/16 10:20 Enalapril Maleate (Vasotec) 2.5 mg BID PO 10/16/16 21:00 10/17/16 09:35 Carvedilol (Coreg) 3.125 mg BID PO 10/16/16 21:00 10/17/16 09:34 Aspirin (Aspirin Chew) 81 mg DAILY CHEW 10/17/16 09:00 10/17/16 09:34 Heparin Sodium (Porcine) (Heparin Inj) 5,000 units Q8H SQ 10/16/16 12:00 10/17/16 13:01 Furosemide (Lasix) 40 mg BID@09,18 PO 10/17/16 09:00 10/17/16 09:35 Potassium Chloride (KCl) 20 meq Q12HR PO 10/17/16 09:00 10/17/16 09:34 A/P Problem List: (1) Congestive heart failure ICD Code: I50.9 (2) CHF exacerbation ICD Code: I50.9 Assessment and Plan Assessment and Plan 56 years old male admitted with a CHF Exacerbation. CHF Exacerbation Echo shows an EF of 15% Cardiomyopathy may be related to drug abuse Stress Test tomorrow Cardiology following His CHF Exacerbation has improved with treatment Continue lasix VQ scan was negative for evidence of PE EBONI on CKD EBONI is improving CKD may be present given degree of CHF Follow renal function Avoid nephrotoxins Diuresis continued Methamphetamine Abuse Risk for cardiac arrhythmia Risk for cardiomyopathy Counseled to quit Elevated transaminase Improved though time Follow LFTs DVT prophylaxis Heparin and SCD Problem Qualifiers (1) Congestive heart failure: Qualified Code: I50.9 - Acute congestive heart failure, unspecified congestive heart failure type Kiel Menendez MD October 17, 2016 16:19
[2016-10-18] VITALS: BP 97/73; PULSE 82; RESP 16; TEMP 97.5; O2SAT 92
[2016-10-18 04:00] VITALS: BP 98/79; PULSE 76; RESP 16; TEMP 96.8; O2SAT 97
[2016-10-18] MEDS: HEPARIN SODIUM - SQ 10,000 UNITS/ML VIAL SQ SCH ×3 (04:05→20:12)
[2016-10-18 07:39] LABS: CHLORIDE 102 MEQ/L (98-107); POTASSIUM 3.9 MEQ/L (3.5-5.1); SODIUM (NA) 138 MEQ/L (136-145)
[2016-10-18 07:55] LABS: ALKALINE PHOSPHATASE 76 U/L (45-117); ALT (GPT) 81 U/L (12-78); ANION GAP 8 MEQ/L (5-15); AST (GOT) 39 U/L (15-37); BICARBONATE 27.7 MEQ/L (21.0-32.0); BLOOD UREA NITROGEN 26 MG/DL (7-18); GLOMERULAR FILTRATION RATE 48 ML/MIN (>89); TOTAL BILIRUBIN ADULT 0.7 MG/DL (0.2-1.0)
[2016-10-18 08:00] VITALS: BP 105/84; PULSE 80; RESP 18; TEMP 97.8; O2SAT 92
[2016-10-18] MEDS: FUROSEMIDE 40 MG TAB PO SCH ×2 (09:21→17:03)
[2016-10-18] MEDS: ENALAPRIL MALEATE 5 MG TAB PO SCH ×2 (09:21→20:09)
[2016-10-18] MEDS: POTASSIUM CHLORIDE 20 MEQ CONTROLLED RELEASE TAB PO SCH ×2 (09:21→20:09)
[2016-10-18] MEDS: CARVEDILOL 3.125 MG TAB PO SCH ×2 (09:21→20:09)
[2016-10-18] MEDS: ASPIRIN 81 MG CHEW TAB CHEW SCH (09:21)
[2016-10-18 12:00] VITALS: BP 109/84; PULSE 86; RESP 18; TEMP 97.8; O2SAT 97
[2016-10-18] MEDS ORDERED: LORazepam 2 MG/ML VIAL IV PUSH PRN (14:45)
--- NOTE | 2016-10-18 15:11 | HHI.PR ---
Subjective Remarks Unable to complete the stress test this morning due to claustrophobia. He has eaten after returning from the stress test. Plan for a repeat attempt at stress testing in AM with Ativan. No chest pain or new complaints today. Objective Vital Signs Date Time Temp Pulse Resp B/P Pulse Ox O2 Delivery O2 Flow Rate FiO2 10/18/16 12:00 97.8 86 18 109/84 97 10/18/16 08:00 97.8 80 18 105/84 92 10/18/16 04:00 96.8 76 16 98/79 97 10/18/16 00:00 97.5 82 16 97/73 92 10/17/16 20:00 97.5 96 18 144/86 95 10/17/16 20:00 88 10/17/16 15:30 98.4 82 21 110/80 98 I/O 10/17/16 10/17/16 10/17/16 10/18/16 10/18/16 10/18/16 07:00 15:00 23:00 07:00 15:00 23:00 Intake Total 300 ml 420 ml Output Total 475 ml Balance -475 ml 300 ml 420 ml Intake Oral 300 ml 420 ml Output Urine Total 475 ml # Voids 4 2 # Bowel Movements 0 0 0 Result Diagram: 10/16/16 0850 10/18/16 0620 Objective Remarks GENERAL: NAD, A&Ox3 SKIN: Warm and dry. HEAD: Normocephalic. EYES: No scleral icterus. No injection or drainage. NECK: Supple, trachea midline. No JVD or lymphadenopathy. CARDIOVASCULAR: Regular rate and rhythm without murmurs, gallops, or rubs. RESPIRATORY: Breath sounds equal bilaterally. No accessory muscle use. GASTROINTESTINAL: Abdomen soft, non-tender, nondistended. MUSCULOSKELETAL: No cyanosis, or edema. BACK: Nontender without obvious deformity. No CVA tenderness. A/P Problem List: (1) Congestive heart failure ICD Code: I50.9 (2) CHF exacerbation ICD Code: I50.9 Assessment and Plan Assessment and Plan 56 years old male admitted with a CHF Exacerbation. Stress Test in AM. PRN Ativan for claustrophobia prior to stress test. CHF Exacerbation Echo shows an EF of 15% Cardiomyopathy may be related to drug abuse Stress Test tomorrow Cardiology following His CHF Exacerbation has improved with treatment Continue lasix VQ scan was negative for evidence of PE EBONI on CKD EBONI is improving CKD may be present given degree of CHF Follow renal function Avoid nephrotoxins Diuresis continued Methamphetamine Abuse Risk for cardiac arrhythmia Risk for cardiomyopathy Counseled to quit Elevated transaminase Improved though time Follow LFTs DVT prophylaxis Heparin and SCD Problem Qualifiers (1) Congestive heart failure: Qualified Code: I50.9 - Acute congestive heart failure, unspecified congestive heart failure type Kiel Menendez MD October 18, 2016 3:11 pm
[2016-10-18 16:00] VITALS: BP 110/86; PULSE 84; RESP 18; TEMP 97.5; O2SAT 97
[2016-10-18 20:00] VITALS: BP 89/51; PULSE 88; PULSE 89; RESP 16; TEMP 98.1; O2SAT 93
[2016-10-18] MEDS: SODIUM CHLORIDE 0.9% FLUSH 10 ML FLUSH IVF PRN (20:09)
[2016-10-19] VITALS: BP 111/58; PULSE 73; RESP 18; TEMP 98.8; O2SAT 97
[2016-10-19 04:00] VITALS: BP 86/74; PULSE 58; RESP 16; TEMP 97.1; O2SAT 98
[2016-10-19] MEDS: HEPARIN SODIUM - SQ 10,000 UNITS/ML VIAL SQ SCH ×2 (04:16→12:05)
[2016-10-19 08:00] VITALS: BP 104/80; PULSE 80; RESP 18; TEMP 98; O2SAT 97
[2016-10-19] MEDS ORDERED: LORazepam 2 MG/ML VIAL IV PUSH PRN (08:00)
[2016-10-19] MEDS: POTASSIUM CHLORIDE 20 MEQ CONTROLLED RELEASE TAB PO SCH (09:02)
[2016-10-19] MEDS: FUROSEMIDE 40 MG TAB PO SCH (09:02)
[2016-10-19] MEDS: CARVEDILOL 3.125 MG TAB PO SCH (09:02)
[2016-10-19] MEDS: ASPIRIN 81 MG CHEW TAB CHEW SCH (09:02)
[2016-10-19 12:00] VITALS: BP 98/81; PULSE 86; RESP 20; TEMP 98; O2SAT 97
[2016-10-19] MEDS ORDERED: REGADENOSON INJ 0.4 MG/5 ML SYR IV ONE (12:45)
--- NOTE | 2016-10-19 14:08 | RADHPO ---
EXAM DATE/TIME: 10/19/2016 11:58 [facility] COMPARISON: No previous studies available for comparison. INDICATIONS : Cardiomegaly. Coronary artery disease. Congestive heart failure. DOSE: 25.7 mCi Tc99m Myoview at stress. 8.1 mCi Tc99m Myoview at rest. 0.4 mg Lexiscan STRESS SYMPTOMS: Short of breath. EJECTION FRACTION: 13% MEDICAL HISTORY : Hypertension. Methicillin-resistant Staphylococcus aureus. SURGICAL HISTORY : Herniated disk. ENCOUNTER: Initial ACUITY: 2 days PAIN SCALE: 3/10 LOCATION: Bilateral chest TECHNIQUE: The patient underwent pharmacologic stress with infusion of prescribed dose. Continuous ECG tracing was monitored during stress. Gated SPECT imaging was performed after stress and conventional SPECT i maging was performed at rest. The examination was performed on a SPECT/CT scanner, both attenuation and non-corrected datasets were reviewed. FINDINGS: DISTRIBUTION: The maximum perfused segment at stress is in the inferior wall. PERFUSION STUDY: There is a small size marked severity fixed defect directly at the apex. There is also a fixed perfus ion defect involving the entire anterior wall. Considering this along with ejection fraction ischemic heart disease is not excluded. Multivessel disease is a consideration as well. GATED STUDY: There is severe global hypokinesis with ejection fraction of 13%. CONCLUSION: 1. Severe hypokinesis with severely decreased ejection fraction of 13% and defects as above. Ischemia is not excluded RISK CATEGORY: High (>3% Annual Mortality Rate) Adilson Romano MD on October 19, 2016 at 13:44 Board Certified Radiologist. This report was verified electronically.
[2016-10-19] MEDS ORDERED: Aspirin Chew CHEW (14:12)
[2016-10-19] MEDS ORDERED: FURO40TA PO ×2 (14:12→14:17)
[2016-10-19] MEDS ORDERED: CARV3.125 PO ×2 (14:12→14:17)
[2016-10-19] MEDS ORDERED: ENAL5TAB PO (14:17)
--- NOTE | 2016-10-19 14:57 | HHI.DS ---
Discharge Summary Admission Date October 16, 2016 at 10:24 Discharge Date: October 19, 2016 Admitting Diagnosis acute congestive heart failure (1) CHF exacerbation ICD Code: I50.9 Diagnosis: Principal (2) Congestive heart failure ICD Code: I50.9 Diagnosis: Principal (3) History of methamphetamine abuse ICD Code: Z87.898 Diagnosis: Secondary Procedures None Brief History - From Admission 56 years old male withpast medical history presented to the ED complaining of subjective feeling of constant short of breath, his saturation wasn't dropping in ED however his BMP was 2200. 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 He stated he quit smoking 1996 and he drinks alcohol once a month. CBC/BMP: 10/16/16 0850 10/18/16 0620 Significant Findings Laboratory Tests Test 10/16/16 10/16/16 10/17/16 10/18/16 16:52 21:58 05:00 06:20 Creatine Kinase MB 4.5 NG/ML (0.5-3.6) Troponin I 0.16 NG/ML 0.15 NG/ML (0.02-0.05) (0.02-0.05) Blood Urea Nitrogen 26 MG/DL (7-18) 26 MG/DL (7-18) Creatinine 1.60 MG/DL 1.50 MG/DL (0.60-1.30) (0.60-1.30) Estimat Glomerular Filtration 45 ML/MIN (>89) 48 ML/MIN (>89) Rate Aspartate Amino Transf 50 U/L (15-37) 39 U/L (15-37) (AST/SGOT) Alanine Aminotransferase 99 U/L (12-78) 81 U/L (12-78) (ALT/SGPT) Albumin 3.2 GM/DL 3.3 GM/DL (3.4-5.0) (3.4-5.0) Imaging Last Impressions Myocardial Perfusion Scan Nuc Med 10/19/16 0000 Signed Impressions: Service Date/Time: Wednesday, October 19, 2016 11:58 - CONCLUSION: 1. Severe hypokinesis with severely decreased ejection fraction of 13%% and defects as above. Ischemia is not excluded RISK CATEGORY: High (>3%% Annual Mortality Rate) Adilson Romano MD Chest X-Ray 10/16/16 0843 Signed Impressions: Service Date/Time: Sunday, October 16, 2016 09:15 - CONCLUSION: 1. Cardiomegaly with slight interstitial prominence likely CHF. 2. Tiny right pleural effusion. Angel Villalobos MD Lung Scan-[facility] Nuclear Medicine 10/16/16 0000 Signed Impressions: Service Date/Time: Sunday, October 16, 2016 14:20 - CONCLUSION: 1. Low probability of pulmonary embolism Adilson Romano MD PE at Discharge GENERAL: NAD, A&Ox3 SKIN: Warm and dry. HEAD: Normocephalic. EYES: No scleral icterus. No injection or drainage. NECK: Supple, trachea midline. No JVD or lymphadenopathy. CARDIOVASCULAR: Regular rate and rhythm without murmurs, gallops, or rubs. RESPIRATORY: Breath sounds equal bilaterally. No accessory muscle use. GASTROINTESTINAL: Abdomen soft, non-tender, nondistended. MUSCULOSKELETAL: No cyanosis, or edema. Hospital Course Mr. Crowe is a 56-year-old male who was admitted for CHF exacerbation. 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 Ejection fraction is approximately 15%. He was not taking any treatment prior to this. With diuretics he has improved and returned to his baseline status. A nuclear stress test shows no reversible defects. He does have fixed defects of the anterior wall apex which are likely related to his cardiomyopathy. No evidence of myocardial infarction during his stay here. He is feeling well now on seeking to discharge. Case discussed with cardiology and they agree that he is stable for discharge. I am medically clearing him today is stable for discharge. The treatments will include Coreg, enalapril, furosemide, and aspirin Pt Condition on Discharge: Stable Discharge Disposition: Discharge Home Discharge Time: <= 30 minutes Discharge Instructions DIET: Follow Instructions for: Heart Healthy Diet Activities you can perform: Regular-No Restrictions Follow up Referrals: Cardiology - 2 Weeks PCP Follow-up - 1 Year New Medications: Carvedilol (Coreg) 3.125 Mg Tab 3.125 MG PO BID CHF #60 TAB Enalapril (Enalapril) 5 Mg Tab 2.5 MG PO BID CHF #60 TAB Furosemide (Furosemide) 40 Mg Tab 40 MG PO BID@18 CHF #60 TAB ([Aspirin Chew]) 81 MG CHEW 81 MG CHEW DAILY TAB.CHEW Kiel Menendez MD October 19, 2016 14:57
== END 2016-10-19 17:56 | disposition home or self-care (01) ==
LOC: PHED 07:58 → PHEDA 10:24 → INTOOBSV 10:24 → PHICU 11:39 → PH3A 10-17 14:05
PROVIDERS: ADMIT Hospitalist; ATTEND Hospitalist
DX: I50.9 Heart failure, unspecified (principal); I42.9 Cardiomyopathy, unspecified; N17.9 Acute kidney failure, unspecified; N18.9 Chronic kidney disease, unspecified; F40.240 Claustrophobia; F12.90 Cannabis use, unspecified, uncomplicated; F15.10 Other stimulant abuse, uncomplicated; Z87.898 Personal history of other specified conditions; Z87.891 Personal history of nicotine dependence; R09.02 Hypoxemia; R06.02 Shortness of breath
CPT/HCPCS: 71020; 78452; 78582; 80053; 80061; 82550; 82552; 82948; 83036; 83880; 84443; 84484; 85025; 85379; 85610; 85730; 93005; 93017; 93306; 96374; 99285; A9502; A9540; A9567; G0378; J1644; J1940; J2060; J2785